=== PATIENT | female | born 1975 | race Caucasian/White ===

== ENCOUNTER 2025-03-17 10:05 | Inpatient (IN) | payer BC ==
[2025-03-17] MEDS ORDERED: Glucagon 1 MG/ML KIT IM PRN (11:20)
[2025-03-17] MEDS ORDERED: Dextrose 50% Abboject 50 ML SYRINGE SLOW IVP PRN (11:20)
[2025-03-17 16:32] VITALS: BMI 41.3
[2025-03-17] MEDS: Famotidine 20 MG TAB PO SCH (20:53)
[2025-03-17] MEDS: Lantus 1000 UNITS/10 ML VIAL SC SCH (20:54)
[2025-03-18 06:09] LABS: #Basophils 0.1 thou/uL (0.0-0.2); #Eosinophils 0.2 thou/uL (0.0-0.7); #Lymphocytes 2.6 thou/uL (1.20-3.40); #Monocytes 0.4 thou/uL (0.11-0.59); #Neutrophils 5.2 thou/uL (1.40-6.50); %Basophils 0.7 % (0.0-1.0); %Eosinophils 2.9 % (0.0-10.0); %Lymphocytes 30.2 % (21.0-51.0); %Monocytes 5.1 % (0.0-10.0); %Neutrophils 61.1 % (42.0-75.0); Hematocrit 39.1 % (36.0-47.0); Hemoglobin 12.3 g/dL (12.0-16.0); Mean Corpuscular Hemoglobin 26.4 pg (27.0-31.0); Mean Corpuscular Volume 84.1 fl (78.0-98.0); Platelet Count 304 10x3/uL (130-400); Red Blood Cell (RBC) Count 4.65 mill/uL (4.20-5.40); White Blood Cell (WBC) Count 8.5 10x3/uL (4.8-10.8)
[2025-03-18 06:16] LABS: ALT (SGPT) 26 U/L (Less than 34); AST (SGOT) 36 U/L (11-34); Albumin 3.2 g/dL (3.1-4.5); Alkaline Phosphatase 65 U/L (40-110); Anion Gap 17 mmol/L (10-20); BUN (Urea Nitrogen) 16 mg/dL (7.0-18.7); Bilirubin, Total 0.3 mg/dL (0.3-1.2); Calc. Creatinine Clearance 209 mL/min (70-130); Calcium 8.7 mg/dL (7.8-10.44); Carbon Dioxide 17 mmol/L (22-29); Chloride 106 mmol/L (98-107); Globulin 3.4 g/dL (2.4-3.5); Glucose 189 mg/dL (70-105); Potassium 4.1 mmol/L (3.5-5.1); Sodium 136 mmol/L (136-145)
[2025-03-18] MEDS: Aspirin 81 mg Enteric Coated Tablet PO SCH (08:57)
[2025-03-18] MEDS: Metoprolol Succinate XL 50 MG ER.TAB PO SCH (08:57)
[2025-03-18] MEDS: Lisinopril 20 MG TAB PO SCH (08:57)
[2025-03-18] MEDS: Dapagliflozin Propanediol 10 MG TAB PO SCH (08:59)
[2025-03-18] MEDS: Gabapentin 300 MG CAP PO PRN (21:16)
[2025-03-19] MEDS: Lantus 1000 UNITS/10 ML VIAL SC SCH (09:01)
[2025-03-20] MEDS: Lantus 1000 UNITS/10 ML VIAL SC SCH (21:15)
[2025-03-21] MEDS: Acetaminophen 325 MG TAB PO PRN (06:14)
[2025-03-22] MEDS: Lantus 1000 UNITS/10 ML VIAL SC SCH (07:56)
[2025-03-23] MEDS: Senokot S 8.6-50 MG TAB PO PRN (08:10)
[2025-03-23] MEDS: Bisacodyl 10 MG SUPP PR PRN (11:01)
[2025-03-24] MEDS: Senokot S 8.6-50 MG TAB PO SCH (08:30)
[2025-03-25 06:16] LABS: #Basophils 0.1 thou/uL (0.0-0.2); #Eosinophils 0.3 thou/uL (0.0-0.7); #Lymphocytes 2.8 thou/uL (1.20-3.40); #Monocytes 0.5 thou/uL (0.11-0.59); #Neutrophils 4.7 thou/uL (1.40-6.50); %Basophils 1.2 % (0.0-1.0); %Eosinophils 3.2 % (0.0-10.0); %Lymphocytes 33.5 % (21.0-51.0); %Monocytes 6.2 % (0.0-10.0); %Neutrophils 55.9 % (42.0-75.0); Hematocrit 39.2 % (36.0-47.0); Hemoglobin 12.3 g/dL (12.0-16.0); Mean Corpuscular Hemoglobin 26.2 pg (27.0-31.0); Mean Corpuscular Volume 83.5 fl (78.0-98.0); Platelet Count 336 10x3/uL (130-400); Red Blood Cell (RBC) Count 4.69 mill/uL (4.20-5.40); White Blood Cell (WBC) Count 8.4 10x3/uL (4.8-10.8)
[2025-03-25 06:22] LABS: ALT (SGPT) 35 U/L (Less than 34); AST (SGOT) 35 U/L (11-34); Albumin 3.3 g/dL (3.1-4.5); Alkaline Phosphatase 68 U/L (40-110); Anion Gap 15 mmol/L (10-20); BUN (Urea Nitrogen) 11 mg/dL (7.0-18.7); Bilirubin, Total 0.4 mg/dL (0.3-1.2); Calc. Creatinine Clearance 191 mL/min (70-130); Calcium 8.8 mg/dL (7.8-10.44); Carbon Dioxide 21 mmol/L (22-29); Chloride 108 mmol/L (98-107); Globulin 3.2 g/dL (2.4-3.5); Glucose 165 mg/dL (70-105); Potassium 4.0 mmol/L (3.5-5.1); Sodium 140 mmol/L (136-145)
[2025-03-25] MEDS: Lantus 1000 UNITS/10 ML VIAL SC SCH (09:16)
[2025-03-26] MEDS: Lantus 1000 UNITS/10 ML VIAL SC SCH (09:35)
[2025-03-27] MEDS: Lantus 1000 UNITS/10 ML VIAL SC SCH (09:00)
[2025-03-28] MEDS: Gabapentin 300 MG CAP PO SCH (10:23)
[2025-03-28] MEDS: Transdermal Patch Removal LIDOCAINE TOP SCH (22:11)
[2025-03-29] MEDS: Lantus 1000 UNITS/10 ML VIAL SC SCH (10:06)
[2025-03-29] MEDS: Gabapentin 400 MG CAP PO SCH (10:09)
[2025-03-29] MEDS: Transdermal Patch Removal LIDOCAINE TOP SCH (20:17)
[2025-03-31 10:48] VITALS: BMI 19.1
[2025-04-01 06:12] LABS: #Basophils 0.1 thou/uL (0.0-0.2); #Eosinophils 0.1 thou/uL (0.0-0.7); #Lymphocytes 3.2 thou/uL (1.20-3.40); #Monocytes 0.7 thou/uL (0.11-0.59); #Neutrophils 5.9 thou/uL (1.40-6.50); %Basophils 1.2 % (0.0-1.0); %Eosinophils 1.2 % (0.0-10.0); %Lymphocytes 32.1 % (21.0-51.0); %Monocytes 6.9 % (0.0-10.0); %Neutrophils 58.6 % (42.0-75.0); Hematocrit 41.6 % (36.0-47.0); Hemoglobin 13.2 g/dL (12.0-16.0); Mean Corpuscular Hemoglobin 26.9 pg (27.0-31.0); Mean Corpuscular Volume 85.0 fl (78.0-98.0); Platelet Count 303 10x3/uL (130-400); Red Blood Cell (RBC) Count 4.90 mill/uL (4.20-5.40); White Blood Cell (WBC) Count 10.1 10x3/uL (4.8-10.8)
[2025-04-01 06:19] LABS: ALT (SGPT) 37 U/L (Less than 34); AST (SGOT) 32 U/L (11-34); Albumin 3.3 g/dL (3.1-4.5); Alkaline Phosphatase 71 U/L (40-110); Anion Gap 15 mmol/L (10-20); BUN (Urea Nitrogen) 12 mg/dL (7.0-18.7); Bilirubin, Total 0.3 mg/dL (0.3-1.2); Calc. Creatinine Clearance 89 mL/min (70-130); Calcium 9.0 mg/dL (7.8-10.44); Carbon Dioxide 17 mmol/L (22-29); Chloride 109 mmol/L (98-107); Globulin 3.2 g/dL (2.4-3.5); Glucose 144 mg/dL (70-105); Potassium 4.3 mmol/L (3.5-5.1); Sodium 137 mmol/L (136-145)
[2025-04-02 09:26] VITALS: BP 140/84
[2025-04-02 10:03] VITALS: TEMP 97.9
== END 2025-04-02 14:20 | DRG 945 ==
LOC: NAV ACUTE 13:52
PROVIDERS: ADMIT Student in an Organized Health Care Education/Training Program; ATTEND Student in an Organized Health Care Education/Training Program
PROC: F07Z9ZZ Gait Training/Functional Ambulation Treatment (ICD-10-PCS; principal; 2025-03-17)
DX: R53.81 Other malaise (principal); I62.00 Nontraumatic subdural hemorrhage, unspecified; I63.511 Cerebral infarction due to unspecified occlusion or stenosis of right middle cerebral artery; N39.0 Urinary tract infection, site not specified; Z79.4 Long term (current) use of insulin; J45.909 Unspecified asthma, uncomplicated; I10 Essential (primary) hypertension; E78.5 Hyperlipidemia, unspecified; E11.9 Type 2 diabetes mellitus without complications; Z79.899 Other long term (current) drug therapy; Z90.49 Acquired absence of other specified parts of digestive tract; L30.4 Erythema intertrigo; M13.812 Other specified arthritis, left shoulder; M54.50 Low back pain, unspecified
CPT/HCPCS: 36416; 80053; 83036; 85025; 36415-59; J1815